=== PATIENT | female | born 1985 | race African-American/Black ===

== ENCOUNTER 2019-09-10 19:48 | Emergency (ER) | payer OTHER ==
[~2019-09-10] VITALS: Ht 172.7 cm; Wt 78.6 kg
[~2019-09-10 19:48] MED LIST: IBUP-1542 PO; PHEN118L PO; PREN1TAB62 PO
[2019-09-10 19:52] VITALS: BP 126/67; PULSE 102; RESP 16; Ht 172.7 cm; Wt 78.6 kg
[2019-09-10] MEDS ORDERED: KETOROLAC 60 MG INJ IM STA (21:22)
[2019-09-10] MEDS ORDERED: PROMETHAZINE/DM (CUP) PO ONE (21:30)
== END 2019-09-10 23:36 | disposition home or self-care (01) ==
LOC: FTE 19:48
DX: J00 Acute nasopharyngitis [common cold] (principal)
CPT/HCPCS: 81025; 96372; J1885; Z7502; Z7610